=== PATIENT | female | born 1985 ===

== ENCOUNTER 2019-10-08 14:40 | Outpatient (CLI) | payer OTHER | END 2019-10-08 14:42 | disposition home or self-care (01) | LOC: SONOGRAMA 14:40 | DX: E04.1 Nontoxic single thyroid nodule (principal) ==

== ENCOUNTER 2022-12-06 08:43 | Outpatient (CLI) | payer OTHER | END 2022-12-06 08:54 | disposition home or self-care (01) | LOC: MAMO-SONO 08:43 | PROVIDERS: ATTEND Obstetrics & Gynecology | DX: N60.19 Diffuse cystic mastopathy of unspecified breast (principal); N63.0 Unspecified lump in unspecified breast; N64.4 Mastodynia; R92.1 Mammographic calcification found on diagnostic imaging of breast; R92.0 Mammographic microcalcification found on diagnostic imaging of breast; R10.2 Pelvic and perineal pain ==

== ENCOUNTER 2023-09-04 10:49 | Outpatient (CLI) | payer OTHER | END 2023-09-04 11:01 | disposition home or self-care (01) | LOC: MRI 10:49 | DX: M25.562 Pain in left knee (principal) | CPT/HCPCS: 73721 ==